=== PATIENT | male | born 1945 | race Caucasian/White ===

== ENCOUNTER 2017-10-15 18:46 | Inpatient (IN) | payer MEDICARE ==
[~2017-10-15] VITALS: Ht 182.9 cm; Wt 144.2 kg
[2017-10-15 20:56] LABS: BASOPHILS % (AUTO) 0.3 % (0.0-5.0); EOSINOPHILS % (AUTO) 1.4 % (0.0-8.0); LYMPHOCYTES % (AUTO) 9.7 % (21.0-51.0); MEAN CORPUSCULAR HEMOGLOBIN 30.7 pg (27.0-33.0); MEAN CORPUSCULAR HGB CONC 33.8 g/dL (32.0-36.0); MEAN CORPUSCULAR VOLUME 90.8 fL (79-99); MONOCYTES % (AUTO) 8.8 % (3.0-13.0); NEUTROPHILS % (AUTO) 79.8 % (40.0-77.0); PLATELET COUNT (AUTO) 133 K/uL (130-400); RED BLOOD CELL COUNT(AUTO) 3.86 MIL/uL (4.50-6.20); RED CELL DISTRIBUTION WIDTH 17.6 % (11.0-15.5); WHITE BLOOD COUNT (AUTO) 9.7 K/uL (4.8-10.8)
[2017-10-15] MEDS ORDERED: VANCOMYCIN 1GM+NS 250ML 250 ML IV ONE (20:59)
[2017-10-15 21:08] LABS: CREATININE 1.7 mg/dL (0.5-1.5); POTASSIUM 3.6 mmol/L (3.5-5.1)
[2017-10-15 21:09] LABS: APPEARANCE,URINE Clear (CLEAR); BILIRUBIN,URINE Negative (NEGATIVE); COLOR,URINE Yellow (YELLOW); GLUCOSE, URINE (UA) Negative (NEGATIVE); KETONES,URINE Negative (NEGATIVE); LEUKOCYTE ESTERASE ,URINE Negative (NEGATIVE); NITRATE,URINE Negative (NEGATIVE); OCCULT BLOOD,URINE Negative (NEGATIVE); PROTEIN,URINE Negative (NEGATIVE)
[2017-10-15 21:12] LABS: ALBUMIN 2.9 g/dL (3.5-5.0); BILIRUBIN,TOTAL 1.8 mg/dL (0.2-1.0); INR 1.04 (0.85-1.15); PARTIAL THROMBOPLASTIN TIME 24.5 SEC (26.3-35.5); PROTHROMBIN TIME 10.9 SEC (9.6-11.6); TOTAL PROTEIN, SERUM 7.9 g/dL (6.0-8.3)
[2017-10-16] MEDS ORDERED: POTASSIUM CHLORIDE 20 MEQ ERTAB PO PRN (01:00)
[2017-10-16] MEDS ORDERED: ONDANSETRON HCL 4 MG/2 ML VIAL IVP PRN (01:00)
[2017-10-16] MEDS ORDERED: LIDOCAINE HCL-MPF 1% 2ML VIAL IJ PRN (01:00)
[2017-10-16] MEDS ORDERED: POTASSIUM CHLORIDE 20MEQ/100ML 100 ML IV PRN (01:00)
[2017-10-16] MEDS ORDERED: DEXTROSE 50%-WATER 50 ML DISP.SYRIN IV PRN (01:00)
[2017-10-16] MEDS ORDERED: ACETAMINOPHEN 325 MG TAB PO PRN (01:00)
[2017-10-16] MEDS ORDERED: GLUCAGON 1MG KIT 1 MG ML IM PRN (01:00)
[2017-10-16] MEDS ORDERED: INSULIN DETEMIR 10ML 100 UNIT/ML 10ML SQ SCH (05:00)
[2017-10-16] MEDS: HEPARIN SODIUM 5000UNIT/ML 1ML VIAL SQ SCH ×3 (06:00→23:04)
[2017-10-16] MEDS ORDERED: MEROPENEM 500MG+NS 50ML 50 ML IV SCH (06:00)
[2017-10-16] MEDS ORDERED: MEROPENEM 500 MG VIAL ONE (06:24)
[2017-10-16] MEDS ORDERED: SODIUM CHLORIDE 0.9% 50 ML IV ONE (06:24)
[2017-10-16 06:27] LABS: CREATININE 1.7 mg/dL (0.5-1.5); POTASSIUM 3.1 mmol/L (3.5-5.1)
[2017-10-16] MEDS: MEROPENEM 500 MG VIAL IVP SCH ×3 (06:30→22:52)
[2017-10-16] MEDS: INSULIN R PO SS1 SQ SCH ×4 (07:30→21:00)
[2017-10-16] MEDS: FAMOTIDINE 20MG TAB 20 MG TAB PO SCH ×2 (09:00→22:47)
[2017-10-16] MEDS ORDERED: ACETAMINOPHEN-CODEINE 300/30MG TAB ONE (09:24)
[2017-10-16] MEDS ORDERED: HEPARIN SODIUM 5000UNIT/ML 1ML VIAL ONE (13:11)
[2017-10-16] MEDS ORDERED: POTASSIUM CHLORIDE 20 MEQ ERTAB PO ONE (13:18)
[2017-10-16 14:23] VITALS: BP 139/67
[2017-10-16] MEDS ORDERED: POTA-79 PO (14:30)
[2017-10-16] MEDS ORDERED: METO100T14 PO (14:30)
[2017-10-16] MEDS ORDERED: ROSU20TA38 PO (14:30)
[2017-10-16] MEDS ORDERED: INDO50 PO (14:30)
[2017-10-16] MEDS ORDERED: INSLAN SQ (14:30)
[2017-10-16] MEDS ORDERED: TAMS-1 PO (14:30)
[2017-10-16] MEDS ORDERED: INSU100C6 SQ ×3 (14:30)
[2017-10-16] MEDS ORDERED: LISI-613 PO (14:30)
[2017-10-16] MEDS ORDERED: TORS20TA4 PO (14:30)
[2017-10-16] MEDS ORDERED: METF10004 PO (14:30)
[2017-10-16] MEDS ORDERED: AMLO10TA2 PO (14:30)
[2017-10-16] MEDS ORDERED: ASPI-1012 PO (14:30)
[2017-10-16] MEDS ORDERED: ACETAMINOPHEN-CODEINE 300/30MG TAB PO PRN (14:45)
[2017-10-16 16:00] VITALS: BP 149/71
[2017-10-16 20:00] VITALS: BP 146/65
[2017-10-16] MEDS ORDERED: INSULIN GLARGINE 100 UNITS/ML 10 ML VIAL SQ ONE (22:37)
[2017-10-16] MEDS: METOPROLOL TARTRATE 50 MG TAB PO SCH (22:47)
[2017-10-16] MEDS: ATORVASTATIN CALCIUM 40 MG TABLET PO SCH (22:47)
[2017-10-16] MEDS: TAMSULOSIN HCL 0.4 MG CAP.ER.24H PO SCH (22:47)
[2017-10-16] MEDS: INSULIN GLARGINE 100 UNITS/ML 10 ML VIAL SQ SCH (23:05)
[2017-10-16 23:35] VITALS: BP 122/71
[2017-10-17 04:02] VITALS: BP 124/54
[2017-10-17 06:18] LABS: HEMATOCRIT 31.8 % (42-54); MEAN CORPUSCULAR HEMOGLOBIN 30.4 pg (27.0-33.0); MEAN CORPUSCULAR HGB CONC 33.8 g/dL (32.0-36.0); MEAN CORPUSCULAR VOLUME 89.8 fL (79-99); PLATELET COUNT (AUTO) 132 K/uL (130-400); RED BLOOD CELL COUNT(AUTO) 3.54 MIL/uL (4.50-6.20); RED CELL DISTRIBUTION WIDTH 17.6 % (11.0-15.5); WHITE BLOOD COUNT (AUTO) 8.3 K/uL (4.8-10.8)
[2017-10-17 06:42] LABS: CREATININE 1.8 mg/dL (0.5-1.5); MAGNESIUM 1.5 mg/dL (1.80-2.40); PHOSPHORUS 3.2 mg/dL (2.5-4.9); POTASSIUM 3.5 mmol/L (3.5-5.1); THYROID STIMULATING HORMONE 2.67 uIU/mL (0.36-3.74); URIC ACID 9.2 mg/dL (2.6-7.2)
[2017-10-17] MEDS: MEROPENEM 500 MG VIAL IVP SCH ×2 (07:13→15:49)
[2017-10-17] MEDS: HEPARIN SODIUM 5000UNIT/ML 1ML VIAL SQ SCH ×3 (07:19→21:14)
[2017-10-17] MEDS: INSULIN LISPRO 100 UNIT/ML 3ML SQ SCH ×3 (07:20→15:50)
[2017-10-17] MEDS: INSULIN R PO SS1 SQ SCH ×4 (07:22→21:00)
[2017-10-17] MEDS ORDERED: METFORMIN HCL 500 MG TABLET PO SCH (08:00)
[2017-10-17] MEDS ORDERED: INDOMETHACIN 25 MG CAP PO SCH (08:00)
[2017-10-17 08:34] LABS: EOSINOPHILS % (MANUAL) 1 % (1-6); LYMPHOCYTES % (MANUAL) 19 % (22-44); MONOCYTES % (MANUAL) 6 % (2-9); SEGMENTED NEUTROPHILS % 74 % (40-70)
[2017-10-17 08:35] LABS: MAN.DIFF COMMENT-IMPRESSION MANUAL DIFFERENTIAL
[2017-10-17 08:37] LABS: PLATELET MORPHOLOGY COMMENT ADEQUATE
[2017-10-17] MEDS ORDERED: TORSEMIDE 20 MG TAB PO SCH (09:00)
[2017-10-17] MEDS ORDERED: LISINOPRIL 20 MG TABLET PO SCH (09:00)
[2017-10-17] MEDS ORDERED: AMLODIPINE BESYLATE 5 MG TAB PO SCH (09:00)
[2017-10-17] MEDS: INSULIN GLARGINE 100 UNITS/ML 10 ML VIAL SQ SCH ×2 (09:00→21:15)
[2017-10-17 09:18] VITALS: BP 149/67
[2017-10-17] MEDS ORDERED: AMLODIPINE BESYLATE 5 MG TAB PO ONE (10:08)
[2017-10-17] MEDS ORDERED: LISINOPRIL 40 MG TABLET ONE (10:09)
[2017-10-17] MEDS: FUROSEMIDE 10 MG/ML 2ML VIAL IV SCH ×2 (10:28→21:33)
[2017-10-17] MEDS: POTASSIUM CHLORIDE 20 MEQ ERTAB PO SCH (10:28)
[2017-10-17] MEDS: FOLIC ACID/VITAMIN B COMP W-C 1 MG CAPSULE PO SCH (10:28)
[2017-10-17] MEDS: ASPIRIN 325 MG TABLET PO SCH (10:28)
[2017-10-17] MEDS: METOPROLOL TARTRATE 50 MG TAB PO SCH ×2 (10:29→21:10)
[2017-10-17] MEDS: FAMOTIDINE 20MG TAB 20 MG TAB PO SCH ×2 (10:29→21:09)
[2017-10-17 10:31] LABS: ABG BASE EXCESS -2.7 mmol/L (-2.0-3.0); ABG HCO3 18.2 mmol/L (21.0-28.0); ABG OXYGEN SATURATION 93.2 % (95.0-99.0); ABG PCO2 24 mmHg (35-48)
[2017-10-17] MEDS ORDERED: MAGNESIUM SULFATE 1 GM in SODIUM CHLORIDE 0.9% 50 ML IV SCH (11:30)
[2017-10-17 13:24] VITALS: BP 136/85
[2017-10-17 16:00] VITALS: BP 132/70
[2017-10-17] MEDS ORDERED: CEFAZOLIN 1GM / D5W 50ML 50 ML IV SCH (17:15)
[2017-10-17] MEDS: CEFAZOLIN SODIUM 1 GM VIAL IVP SCH (19:59)
[2017-10-17 20:00] VITALS: BP 153/68
[2017-10-17] MEDS: TAMSULOSIN HCL 0.4 MG CAP.ER.24H PO SCH (21:09)
[2017-10-17] MEDS: DOXYCYCLINE HYCLATE 100 MG TABLET PO SCH (21:09)
[2017-10-17] MEDS: ATORVASTATIN CALCIUM 40 MG TABLET PO SCH (21:09)
[2017-10-18] VITALS: BP 108/59
[2017-10-18] MEDS: CEFAZOLIN SODIUM 1 GM VIAL IVP SCH ×3 (01:54→18:09)
[2017-10-18 04:00] VITALS: BP 117/78
[2017-10-18] MEDS: HEPARIN SODIUM 5000UNIT/ML 1ML VIAL SQ SCH ×3 (05:42→21:15)
[2017-10-18] MEDS: INSULIN R PO SS1 SQ SCH ×4 (05:55→21:17)
[2017-10-18 06:16] LABS: HEMATOCRIT 28.9 % (42-54); MEAN CORPUSCULAR HEMOGLOBIN 31.3 pg (27.0-33.0); MEAN CORPUSCULAR HGB CONC 34.9 g/dL (32.0-36.0); MEAN CORPUSCULAR VOLUME 89.6 fL (79-99); PLATELET COUNT (AUTO) 109 K/uL (130-400); RED BLOOD CELL COUNT(AUTO) 3.22 MIL/uL (4.50-6.20); RED CELL DISTRIBUTION WIDTH 17.7 % (11.0-15.5); WHITE BLOOD COUNT (AUTO) 5.5 K/uL (4.8-10.8)
[2017-10-18] MEDS: INSULIN LISPRO 100 UNIT/ML 3ML SQ SCH ×3 (06:35→16:21)
[2017-10-18 06:44] LABS: CREATININE 1.9 mg/dL (0.5-1.5); MAGNESIUM 1.8 mg/dL (1.80-2.40); POTASSIUM 3.3 mmol/L (3.5-5.1)
[2017-10-18 09:10] VITALS: BP 155/69
[2017-10-18 09:11] LABS: EOSINOPHILS % (MANUAL) 2 % (1-6); LYMPHOCYTES % (MANUAL) 14 % (22-44); MAN.DIFF COMMENT-IMPRESSION MANUAL DIFFERENTIAL; MONOCYTES % (MANUAL) 9 % (2-9); SEGMENTED NEUTROPHILS % 75 % (40-70)
[2017-10-18 09:13] LABS: PLATELET MORPHOLOGY COMMENT SLIGHTLY DECREASED
[2017-10-18] MEDS: FUROSEMIDE 10 MG/ML 2ML VIAL IV SCH ×2 (11:25→21:13)
[2017-10-18] MEDS: LISINOPRIL 40 MG TABLET PO SCH (11:25)
[2017-10-18] MEDS: FOLIC ACID/VITAMIN B COMP W-C 1 MG CAPSULE PO SCH (11:26)
[2017-10-18] MEDS: ASPIRIN 325 MG TABLET PO SCH (11:27)
[2017-10-18] MEDS: POTASSIUM CHLORIDE 20 MEQ ERTAB PO SCH (11:27)
[2017-10-18] MEDS: FAMOTIDINE 20MG TAB 20 MG TAB PO SCH ×2 (11:27→21:50)
[2017-10-18] MEDS: DOXYCYCLINE HYCLATE 100 MG TABLET PO SCH ×2 (11:27→21:50)
[2017-10-18] MEDS: INSULIN GLARGINE 100 UNITS/ML 10 ML VIAL SQ SCH ×2 (11:30→21:16)
[2017-10-18] MEDS: AMLODIPINE BESYLATE 5 MG TAB PO SCH (11:32)
[2017-10-18] MEDS: MILRINONE-D5W 20 MG/100 ML 100 ML IV SCH ×2 (12:07→20:39)
[2017-10-18 15:55] VITALS: BP 147/67
[2017-10-18] MEDS ORDERED: CARVEDILOL 12.5 MG TABLET PO ONE (17:51)
[2017-10-18] MEDS: POTASSIUM CHLORIDE 10% ELIXIR 20 MEQ/15 ML UDCUP PO PRN (18:11)
[2017-10-18] MEDS: CARVEDILOL 6.25 MG TABLET PO SCH (18:13)
[2017-10-18 19:34] VITALS: BP 143/60
[2017-10-18] MEDS: TAMSULOSIN HCL 0.4 MG CAP.ER.24H PO SCH (21:12)
[2017-10-18] MEDS: ATORVASTATIN CALCIUM 40 MG TABLET PO SCH (21:13)
[2017-10-18 23:31] VITALS: BP 99/52
[2017-10-19] MEDS: CEFAZOLIN SODIUM 1 GM VIAL IVP SCH ×3 (01:29→18:55)
[2017-10-19 03:43] LABS: HEMATOCRIT 28.5 % (42-54); MEAN CORPUSCULAR HEMOGLOBIN 30.3 pg (27.0-33.0); MEAN CORPUSCULAR HGB CONC 34.2 g/dL (32.0-36.0); MEAN CORPUSCULAR VOLUME 88.7 fL (79-99); PLATELET COUNT (AUTO) 124 K/uL (130-400); RED BLOOD CELL COUNT(AUTO) 3.21 MIL/uL (4.50-6.20); RED CELL DISTRIBUTION WIDTH 17.6 % (11.0-15.5)
[2017-10-19 03:51] VITALS: BP 108/63
[2017-10-19 04:07] LABS: CREATININE 2.3 mg/dL (0.5-1.5); MAGNESIUM 1.9 mg/dL (1.80-2.40); POTASSIUM 3.4 mmol/L (3.5-5.1)
[2017-10-19] MEDS: INSULIN LISPRO 100 UNIT/ML 3ML SQ SCH ×3 (05:50→16:31)
[2017-10-19] MEDS: INSULIN R PO SS1 SQ SCH ×4 (05:51→21:00)
[2017-10-19] MEDS: HEPARIN SODIUM 5000UNIT/ML 1ML VIAL SQ SCH ×3 (05:56→21:26)
[2017-10-19 07:00] VITALS: BP 129/47
[2017-10-19] MEDS: FUROSEMIDE 10 MG/ML 2ML VIAL IV SCH (08:18)
[2017-10-19] MEDS: FAMOTIDINE 20MG TAB 20 MG TAB PO SCH ×2 (08:19→21:23)
[2017-10-19] MEDS: FOLIC ACID/VITAMIN B COMP W-C 1 MG CAPSULE PO SCH (08:19)
[2017-10-19] MEDS: CARVEDILOL 6.25 MG TABLET PO SCH (08:19)
[2017-10-19] MEDS: ASPIRIN 325 MG TABLET PO SCH (08:19)
[2017-10-19] MEDS: LISINOPRIL 40 MG TABLET PO SCH (08:19)
[2017-10-19] MEDS: POTASSIUM CHLORIDE 20 MEQ ERTAB PO SCH (08:20)
[2017-10-19] MEDS: AMLODIPINE BESYLATE 5 MG TAB PO SCH (08:20)
[2017-10-19] MEDS: INSULIN GLARGINE 100 UNITS/ML 10 ML VIAL SQ SCH ×2 (08:21→21:36)
[2017-10-19 11:00] VITALS: BP 99/40
[2017-10-19] MEDS: DOXYCYCLINE HYCLATE 100 MG TABLET PO SCH ×2 (11:12→21:23)
[2017-10-19] MEDS: MILRINONE-D5W 20 MG/100 ML 100 ML IV SCH ×2 (11:20→23:40)
[2017-10-19] MEDS: BUMETANIDE 0.25 MG/ML 10 ML 40 ML IV SCH ×2 (12:59→21:39)
[2017-10-19 16:25] VITALS: BP 127/48
[2017-10-19] MEDS ORDERED: COMPOUND IV MISC 1 EACH IVSOLN MISC PRN (19:30)
[2017-10-19 19:55] VITALS: BP 118/41
[2017-10-19] MEDS ORDERED: INSULIN GLARGINE 100 UNITS/ML 10 ML VIAL SQ ONE (21:11)
[2017-10-19] MEDS: ATORVASTATIN CALCIUM 40 MG TABLET PO SCH (21:23)
[2017-10-19] MEDS: CARVEDILOL 12.5 MG TABLET PO SCH (21:24)
[2017-10-19] MEDS: TAMSULOSIN HCL 0.4 MG CAP.ER.24H PO SCH (21:26)
[2017-10-19 23:15] VITALS: BP 108/47
[2017-10-20] VITALS (7 sets, daily range): BP systolic 100–120; BP diastolic 35–56
[2017-10-20] MEDS: CEFAZOLIN SODIUM 1 GM VIAL IVP SCH ×3 (02:16→17:54)
[2017-10-20 04:41] LABS: HEMATOCRIT 25.7 % (42-54); MEAN CORPUSCULAR HEMOGLOBIN 31.5 pg (27.0-33.0); MEAN CORPUSCULAR HGB CONC 35.4 g/dL (32.0-36.0); NUCLEATED RED BLOOD CELLS 0.1 % (0.0-0.19); PLATELET COUNT (AUTO) 143 K/uL (130-400); RED BLOOD CELL COUNT(AUTO) 2.89 MIL/uL (4.50-6.20); RED CELL DISTRIBUTION WIDTH 17.9 % (11.0-15.5); WHITE BLOOD COUNT (AUTO) 4.7 K/uL (4.8-10.8)
[2017-10-20 04:51] LABS: CREATININE 3.3 mg/dL (0.5-1.5); POTASSIUM 3.1 mmol/L (3.5-5.1)
[2017-10-20] MEDS: MILRINONE-D5W 20 MG/100 ML 100 ML IV SCH (05:16)
[2017-10-20] MEDS: HEPARIN SODIUM 5000UNIT/ML 1ML VIAL SQ SCH ×3 (06:32→21:54)
[2017-10-20] MEDS: INSULIN LISPRO 100 UNIT/ML 3ML SQ SCH ×3 (06:33→17:56)
[2017-10-20] MEDS: INSULIN R PO SS1 SQ SCH ×4 (06:33→21:00)
[2017-10-20] MEDS ORDERED: LISINOPRIL 20 MG TABLET PO SCH (09:00)
[2017-10-20] MEDS: FAMOTIDINE 20MG TAB 20 MG TAB PO SCH ×2 (09:12→21:52)
[2017-10-20] MEDS: CARVEDILOL 12.5 MG TABLET PO SCH ×2 (09:12→21:53)
[2017-10-20] MEDS: FOLIC ACID/VITAMIN B COMP W-C 1 MG CAPSULE PO SCH (09:12)
[2017-10-20] MEDS: ASPIRIN 325 MG TABLET PO SCH (09:12)
[2017-10-20] MEDS: DOXYCYCLINE HYCLATE 100 MG TABLET PO SCH ×2 (09:12→21:52)
[2017-10-20] MEDS: POTASSIUM CHLORIDE 20 MEQ ERTAB PO SCH (09:13)
[2017-10-20] MEDS: INSULIN GLARGINE 100 UNITS/ML 10 ML VIAL SQ SCH ×2 (09:18→21:55)
[2017-10-20] MEDS: POTASSIUM CHLORIDE 10% ELIXIR 20 MEQ/15 ML UDCUP PO PRN ×2 (15:09→19:03)
[2017-10-20] MEDS: TAMSULOSIN HCL 0.4 MG CAP.ER.24H PO SCH (21:52)
[2017-10-20] MEDS: ATORVASTATIN CALCIUM 40 MG TABLET PO SCH (21:53)
[2017-10-21] MEDS: MILRINONE-D5W 20 MG/100 ML 100 ML IV SCH (01:48)
[2017-10-21] MEDS: CEFAZOLIN SODIUM 1 GM VIAL IVP SCH ×3 (02:28→18:15)
[2017-10-21 03:35] VITALS: BP 122/54
[2017-10-21 03:38] LABS: POTASSIUM 3.7 mmol/L (3.5-5.1)
[2017-10-21] MEDS: HEPARIN SODIUM 5000UNIT/ML 1ML VIAL SQ SCH ×3 (06:43→22:11)
[2017-10-21] MEDS: INSULIN LISPRO 100 UNIT/ML 3ML SQ SCH ×3 (06:47→16:30)
[2017-10-21] MEDS: INSULIN R PO SS1 SQ SCH ×4 (06:47→22:10)
[2017-10-21 07:50] VITALS: BP 145/42
[2017-10-21] MEDS: FOLIC ACID/VITAMIN B COMP W-C 1 MG CAPSULE PO SCH (10:20)
[2017-10-21] MEDS: DOXYCYCLINE HYCLATE 100 MG TABLET PO SCH ×2 (10:20→22:16)
[2017-10-21] MEDS: ASPIRIN 325 MG TABLET PO SCH (10:20)
[2017-10-21] MEDS: FAMOTIDINE 20MG TAB 20 MG TAB PO SCH ×2 (10:20→22:16)
[2017-10-21] MEDS: CARVEDILOL 12.5 MG TABLET PO SCH ×2 (10:21→22:16)
[2017-10-21] MEDS: POTASSIUM CHLORIDE 20 MEQ ERTAB PO SCH (10:21)
[2017-10-21] MEDS: INSULIN GLARGINE 100 UNITS/ML 10 ML VIAL SQ SCH ×2 (10:22→22:09)
[2017-10-21 12:17] VITALS: BP 136/59
[2017-10-21 16:00] VITALS: BP 139/59
[2017-10-21 19:35] VITALS: BP 122/54
[2017-10-21] MEDS: ATORVASTATIN CALCIUM 40 MG TABLET PO SCH (22:16)
[2017-10-21] MEDS: TAMSULOSIN HCL 0.4 MG CAP.ER.24H PO SCH (22:17)
[2017-10-21 23:48] VITALS: BP 132/59
[2017-10-22] MEDS: CEFAZOLIN SODIUM 1 GM VIAL IVP SCH ×3 (02:15→17:50)
[2017-10-22 03:50] VITALS: BP 128/57
[2017-10-22 04:34] LABS: HEMATOCRIT 29.6 % (42-54); MEAN CORPUSCULAR HEMOGLOBIN 31.4 pg (27.0-33.0); MEAN CORPUSCULAR HGB CONC 34.8 g/dL (32.0-36.0); MEAN CORPUSCULAR VOLUME 90.1 fL (79-99); NUCLEATED RED BLOOD CELLS 0.1 % (0.0-0.19); PLATELET COUNT (AUTO) 155 K/uL (130-400); RED BLOOD CELL COUNT(AUTO) 3.29 MIL/uL (4.50-6.20); RED CELL DISTRIBUTION WIDTH 17.7 % (11.0-15.5); WHITE BLOOD COUNT (AUTO) 5.7 K/uL (4.8-10.8)
[2017-10-22 04:43] LABS: CREATININE 2.4 mg/dL (0.5-1.5); POTASSIUM 4.3 mmol/L (3.5-5.1)
[2017-10-22 05:05] LABS: BAND NEUTROPHILS % (MANUAL) 4 % (0-2); EOSINOPHILS % (MANUAL) 2 % (1-6); LYMPHOCYTES % (MANUAL) 18 % (22-44); MAN.DIFF COMMENT-IMPRESSION MANUAL DIFFERENTIAL; MONOCYTES % (MANUAL) 4 % (2-9); REACTIVE LYMPHOCYTES 1 % (0-0); SEGMENTED NEUTROPHILS % 71 % (40-70)
[2017-10-22 05:06] LABS: PLATELET MORPHOLOGY COMMENT ADEQUATE
[2017-10-22] MEDS: INSULIN R PO SS1 SQ SCH ×4 (06:01→20:46)
[2017-10-22] MEDS: HEPARIN SODIUM 5000UNIT/ML 1ML VIAL SQ SCH ×3 (06:19→22:00)
[2017-10-22] MEDS: INSULIN LISPRO 100 UNIT/ML 3ML SQ SCH ×3 (06:22→15:38)
[2017-10-22 07:00] VITALS: BP 124/75
[2017-10-22] MEDS: FOLIC ACID/VITAMIN B COMP W-C 1 MG CAPSULE PO SCH (08:55)
[2017-10-22] MEDS: INSULIN GLARGINE 100 UNITS/ML 10 ML VIAL SQ SCH ×2 (08:56→20:44)
[2017-10-22] MEDS: CARVEDILOL 12.5 MG TABLET PO SCH ×2 (08:56→20:54)
[2017-10-22] MEDS: ASPIRIN 325 MG TABLET PO SCH (08:56)
[2017-10-22] MEDS: FAMOTIDINE 20MG TAB 20 MG TAB PO SCH ×2 (08:56→20:53)
[2017-10-22] MEDS: DOXYCYCLINE HYCLATE 100 MG TABLET PO SCH ×2 (08:56→20:53)
[2017-10-22] MEDS: POTASSIUM CHLORIDE 20 MEQ ERTAB PO SCH (08:57)
[2017-10-22 11:00] VITALS: BP 125/67
[2017-10-22 16:00] VITALS: BP 138/66
[2017-10-22 19:31] VITALS: BP 130/54
[2017-10-22] MEDS: TAMSULOSIN HCL 0.4 MG CAP.ER.24H PO SCH (20:53)
[2017-10-22] MEDS: ATORVASTATIN CALCIUM 40 MG TABLET PO SCH (20:53)
[2017-10-22 23:57] VITALS: BP 142/49
[2017-10-23] MEDS: CEFAZOLIN SODIUM 1 GM VIAL IVP SCH ×2 (02:51→09:07)
[2017-10-23 04:00] VITALS: BP 133/41
[2017-10-23 04:46] LABS: HEMATOCRIT 29.4 % (42-54); MEAN CORPUSCULAR HGB CONC 33.1 g/dL (32.0-36.0); MEAN CORPUSCULAR VOLUME 90.5 fL (79-99); PLATELET COUNT (AUTO) 136 K/uL (130-400); RED BLOOD CELL COUNT(AUTO) 3.25 MIL/uL (4.50-6.20); RED CELL DISTRIBUTION WIDTH 18.5 % (11.0-15.5); WHITE BLOOD COUNT (AUTO) 5.2 K/uL (4.8-10.8)
[2017-10-23 05:06] LABS: CREATININE 1.8 mg/dL (0.5-1.5); POTASSIUM 4.3 mmol/L (3.5-5.1)
[2017-10-23] MEDS: HEPARIN SODIUM 5000UNIT/ML 1ML VIAL SQ SCH ×2 (05:20→13:24)
[2017-10-23 05:25] LABS: EOSINOPHILS % (MANUAL) 3 % (1-6); LYMPHOCYTES % (MANUAL) 16 % (22-44); MAN.DIFF COMMENT-IMPRESSION MANUAL DIFFERENTIAL; MONOCYTES % (MANUAL) 3 % (2-9); PLATELET MORPHOLOGY COMMENT ADEQUATE; SEGMENTED NEUTROPHILS % 78 % (40-70)
[2017-10-23] MEDS: INSULIN LISPRO 100 UNIT/ML 3ML SQ SCH ×2 (05:54→11:30)
[2017-10-23] MEDS: INSULIN R PO SS1 SQ SCH ×2 (05:55→11:30)
[2017-10-23 07:00] VITALS: BP 136/63
[2017-10-23] MEDS ORDERED: TORSEMIDE 20 MG TAB PO SCH (09:00)
[2017-10-23] MEDS: ASPIRIN 325 MG TABLET PO SCH (09:01)
[2017-10-23] MEDS: FAMOTIDINE 20MG TAB 20 MG TAB PO SCH (09:01)
[2017-10-23] MEDS: DOXYCYCLINE HYCLATE 100 MG TABLET PO SCH (09:01)
[2017-10-23] MEDS: FOLIC ACID/VITAMIN B COMP W-C 1 MG CAPSULE PO SCH (09:01)
[2017-10-23] MEDS: POTASSIUM CHLORIDE 20 MEQ ERTAB PO SCH (09:02)
[2017-10-23] MEDS: CARVEDILOL 12.5 MG TABLET PO SCH (09:02)
[2017-10-23] MEDS: INSULIN GLARGINE 100 UNITS/ML 10 ML VIAL SQ SCH (09:07)
[2017-10-23 11:00] VITALS: BP 124/67
[2017-10-23] MEDS ORDERED: CARV12.580 PO (11:30)
[2017-10-23] MEDS ORDERED: CEPH500B PO (14:13)
[2017-10-23] MEDS ORDERED: DOXY100C2 PO (14:13)
== END 2017-10-23 15:42 | disposition home or self-care (01) | DRG 682 ==
LOC: EDH 18:46 → EDHIP 23:18 → 4CH 10-16 14:23 → 2BH 10-18 11:53 → 2DH 10-19 17:29 → 2CV 10-20 10:31 → 2DH 10-20 10:33
PROVIDERS: ADMIT Internal Medicine Nephrology; ATTEND Internal Medicine Nephrology
PROC: 5A09357 Assistance with Respiratory Ventilation, Less than 24 Consecutive Hours, Continuous Positive Airway Pressure (ICD-10-PCS; principal; 2017-10-20)
DX: N17.9 Acute kidney failure, unspecified (principal); I50.43 Acute on chronic combined systolic (congestive) and diastolic (congestive) heart failure; J96.01 Acute respiratory failure with hypoxia; L03.115 Cellulitis of right lower limb; E11.22 Type 2 diabetes mellitus with diabetic chronic kidney disease; E83.42 Hypomagnesemia; L03.116 Cellulitis of left lower limb; I13.0 Hypertensive heart and chronic kidney disease with heart failure and stage 1 through stage 4 chronic kidney disease, or unspecified chronic kidney disease; E66.2 Morbid (severe) obesity with alveolar hypoventilation; Z68.41 Body mass index [BMI] 40.0-44.9, adult; D64.9 Anemia, unspecified; E78.5 Hyperlipidemia, unspecified; E87.6 Hypokalemia; I25.10 Atherosclerotic heart disease of native coronary artery without angina pectoris; I25.5 Ischemic cardiomyopathy; I34.0 Nonrheumatic mitral (valve) insufficiency; I35.0 Nonrheumatic aortic (valve) stenosis; I48.0 Paroxysmal atrial fibrillation; I49.3 Ventricular premature depolarization; I50.82 Biventricular heart failure; I87.2 Venous insufficiency (chronic) (peripheral); I87.8 Other specified disorders of veins; N18.3 Chronic kidney disease, stage 3 (moderate); N40.0 Benign prostatic hyperplasia without lower urinary tract symptoms; T50.2X5A Adverse effect of carbonic-anhydrase inhibitors, benzothiadiazides and other diuretics, initial encounter; Z79.4 Long term (current) use of insulin; Z87.442 Personal history of urinary calculi; Z91.19 Patient's noncompliance with other medical treatment and regimen; Z95.3 Presence of xenogenic heart valve; Z95.5 Presence of coronary angioplasty implant and graft; Z96.653 Presence of artificial knee joint, bilateral; M10.9 Gout, unspecified
CPT/HCPCS: 36415; 36600; 71045; 76770; 78580; 80048; 80053; 81003; 82803; 82948; 83735; 83880; 84100; 84443; 84550; 85025; 85027; 85378; 85610; 85730; 93005; 93306; 93970; 97039; A4218; A9540; J0690; J1644; J1815; J1940; J2185; J2260; J3370; J3475; J3490